=== PATIENT | male | born 1980 | race Caucasian/White ===

== ENCOUNTER 2017-03-03 03:01 | Emergency (ER) | payer MEDICAID ==
[~2017-03-03] VITALS: Ht 188 cm; Wt 99.8 kg
--- NOTE | 2017-03-03 03:15 | NUR ---
Pt states 20 minutes before arriving he started with right flank pain 9/10.
[2017-03-03 03:25] VITALS: BP_SYST 139
--- NOTE | 2017-03-03 03:25 | NUR ---
Placed in room 06. Placed on monitoring coordinator, blood pressure machine and pulse oximeter. To gown for exam. Side rails up. Report given to GILLES Montes.
--- NOTE | 2017-03-03 03:35 | NUR ---
ER at bedside examining patient.
[2017-03-03] MEDS ORDERED: NACL 0.9% 1,000 ML IV ONE (03:41)
[2017-03-03] MEDS ORDERED: KETOROLAC TROMETHAMINE 30 MG VIAL IVP ONE (03:45)
[2017-03-03] MEDS ORDERED: ONDANSETRON HCL 4 MG/2 ML VIAL IVP ONE (03:45)
[2017-03-03] MEDS ORDERED: MORPHINE 2 MG/ML INJ. SYRINGE IM ONE (04:00)
[2017-03-03] MEDS ORDERED: PROCHLORPERAZINE EDISYLATE 10 MG/2 ML VIAL IM ONE (04:00)
--- NOTE | 2017-03-03 04:00 | NUR ---
# 20 gauge angiocath placed to RAC. Use of asceptic technique. Opsite placed over site. Blood return noted. Blood for lab drawn from site. Flushed with 10 cc of normal saline. No evidence of infiltration noted. Patient tolerated well.
[2017-03-03 04:41] LABS: BASOPHILS # (AUTO) 0.1 K/uL (0.0-0.2); BASOPHILS % (AUTO) 1.1 % (0.0-2.0); EOSINOPHILS # (AUTO) 0.2 K/uL (0.0-0.4); EOSINOPHILS % (AUTO) 2.8 % (0.0-4.0); HEMATOCRIT 44.4 % (36-54); HEMOGLOBIN 14.8 g/dL (14.0-18.0); LYMPHOCYTES # (AUTO) 3.2 K/uL (1.0-5.5); MEAN CORPUSCULAR HEMOGLOBIN 27 pg (27-31); MEAN CORPUSCULAR HGB CONC 33 % (32-36); MEAN CORPUSCULAR VOLUME 80 fL (79.0-98.0); MONOCYTES # (AUTO) 0.7 K/uL (0.0-1.0); MONOCYTES % (AUTO) 7.8 % (1.7-9.3); NEUTROPHILS # (AUTO) 4.5 K/uL (1.8-7.7); NEUTROPHILS % (AUTO) 51.3 % (40.0-70.0); PLATELET COUNT (AUTO) 339 K/uL (130-430); RED BLOOD CELL COUNT(AUTO) 5.53 MIL/uL (4.2-6.2); WHITE BLOOD COUNT (AUTO) 8.7 K/uL (4.8-10.8)
[2017-03-03 04:42] LABS: CALCIUM 9.4 mg/dL (8.4-11.0); CREATININE 1.42 mg/dL (0.55-1.30)
[2017-03-03 04:47] LABS: POTASSIUM 2.7 mmol/L (3.5-5.1)
[2017-03-03 04:56] LABS: ALBUMIN 4.1 g/dL (3.4-4.8); TOTAL BILIRUBIN 0.9 mg/dL (0.0-1.0); TOTAL PROTEIN, SERUM 7.7 g/dL (6.4-8.3)
[2017-03-03] MEDS ORDERED: POTASSIUM CHLORIDE 20 MEQ TAB.PRT.SR PO ONE (05:15)
[2017-03-03 06:00] VITALS: BP_SYST 137
--- NOTE | 2017-03-03 06:00 | NUR ---
Patient given written and verbal discharge instructions and verbalizes understanding. ER MD discussed with patient the results and treatment provided. Patient in stable condition. ID arm band removed. IV catheter removed intact and dressing applied, no active bleeding. Rx of [place] 5-325mg, Zofran 4mg, Motrin 800mg all PO given. Patient educated on pain management and to follow up with PMD. Pain Scale 2/10. Opportunity for questions provided and answered.
== END 2017-03-03 06:00 | disposition home or self-care (01) ==
LOC: SED 03:01
DX: N23 Unspecified renal colic (principal); R03.0 Elevated blood-pressure reading, without diagnosis of hypertension
CPT/HCPCS: 36415; 74176; 80053; 85025; 96361; 96372; 96374; 96375; 99285; J0780; J1885; J2270; J2405; J7030